=== PATIENT | male | born 1955 | race Caucasian/White ===

== ENCOUNTER 2016-09-23 06:15 | Day surgery (SDC) | payer OTHER ==
[~2016-09-23] VITALS: Ht 167.6 cm; Wt 78.6 kg
[~2016-09-23 06:15] MED LIST: NOMED
[2016-09-23] MEDS ORDERED: fentaNYL-PF 50 mCg/mL 2 mL Inj ONE (06:16)
[2016-09-23] MEDS ORDERED: Propofol 10,000 mCg/mL 20 mL Inj ONE (06:16)
[2016-09-23 06:32] VITALS: BP 110/73; PULSE 57; RESP 12; O2SAT 96
[2016-09-23] MEDS: Lactated Ringer's 1,000 ML IV SCH ×2 (06:56→08:04)
[2016-09-23] MEDS ORDERED: HYDROcodone-APAP 5-325 mg Tablet PO PRN (07:55)
[2016-09-23] MEDS ORDERED: Lidocaine 1%-Epi 1:100,000 20 mL Inj INFILTRATE ONE (08:14)
[2016-09-23 08:38] VITALS: BP 105/62; PULSE 55; RESP 16; O2SAT 98
[2016-09-23] MEDS ORDERED: hydrALAZINE 20 mg/mL Inj IVPUSH PRN (08:45)
[2016-09-23] MEDS ORDERED: Atropine 0.4 mg/mL Inj IVPUSH PRN (08:45)
[2016-09-23] MEDS ORDERED: fentaNYL-PF 50 mCg/mL 2 mL Inj IVPUSH PRN (08:45)
[2016-09-23] MEDS ORDERED: Labetalol 5 mg/mL 4 mL Inj IV PRN (08:45)
[2016-09-23] MEDS ORDERED: Phenylephrine 10,000 mCg/mL Inj IVPUSH PRN (08:45)
[2016-09-23] MEDS ORDERED: EPHEDrine Sulfate 50 mg/mL Inj IVPUSH PRN (08:45)
[2016-09-23] MEDS ORDERED: Ondansetron 2 mg/mL 2 mL Inj IVPUSH PRN (08:45)
[2016-09-23] MEDS ORDERED: Lactated Ringer's 1,000 ML IV SCH (08:45)
[2016-09-23] MEDS ORDERED: Lactated Ringer's 500 ML IV PRN (08:45)
[2016-09-23 08:57] VITALS: BP 124/80; PULSE 61; RESP 18; O2SAT 96
--- NOTE | 2016-09-23 13:10 | PCM.HPANE ---
Patient Data Surgeon Admitting Provider: Attending Provider:Ray Bustamante DO Primary Care Physician:Tereza Holland MD Other Provider:Gabrielle Johnson Anesthesia Reason for Visit Right Carpal Tunnel Syndrome Ht/WT & BMI Height (Feet): 5 Height (Inches): 6.00 Weight (Kilograms): 78.600 Body Mass Index 27.00 Allergies Coded Allergies: lidocaine (Verified Adverse Reaction, Intermediate, CAUSED TWITCHING WHEN GIVEN IV DURING RANDALL BLOCK, 09/23/16) Past Anesthesia History Anesthesia History: Denies:: Anesthesia Reactions Diabetes History Hx Diabetes?: No Medications Reported Medications No Historical Medication Ea Ref 0 01/13/09 History History of ENT Problems?: No Hx of Heart Problems?: No Hx of Respiratory Problem?: No Respiratory History: Denies:: Oxygen Administration Use of C-PAP Machine Hx Neurologic Problems?: No Hx of GI Problems?: No Hx of Problems?: Yes Genitourinary History: Positive for:: Kidney Stones (prior hx of ESWL, lithotripsy) Male Hx: Positive for:: Testicular Surgery (hx vasectomy) Denies:: Prostate Problems Skin History: Denies:: History Skin Disorders? Hx Musculoskeletal Problems?: Yes Musculoskeletal History: Positive for:: Musculoskeletal Trauma (right carpal tunnel current admission problem) Hx of Psycho/Social Problems?: No Hx Surgeries?: Yes (tonsil, vas, ESWL) Hx Any Other Health Problems?: Yes Other History: Denies:: Cancer Thyroid Disease Hx Diabetes: No Have You Smoked inLast 12 mo: No Stop/Bang P-Blood Pressure: treated: No B- Body Mass Index > 35 kg/m2: No A- Age over 50: Yes N- Neck Large Circumference: No G- Gender Male: Yes Risk Assessment Category Category 1A: Patient has history of documented sleep apnea, and HAS NOT received any narcotic, sedative or anesthesia administration during this stay. Category 1B: Patient has history of documented sleep apnea, and HAS received any narcotic , sedative or anesthesia administration during this stay Category 2: Patient has SUSPECTED Obstructive Sleep Apnea, and HAS received any narcotic , sedative or anesthesia administration during this stay. Category 3: Patient has SUSPECTED Obstructive Sleep Apnea and HAS NOT received narcotic, sedative or anesthesia administration during this stay. Category 4: Outpatient in Procedural Areas with known sleep apnea or who screen positive for High Risk via the STOP/BANG questionnaire. Exam Exam Vital Signs Vital Signs Date Time Temp Pulse Resp B/P Pulse Ox O2 Delivery O2 Flow Rate FiO2 09/23/16 06:32 36.5 57 12 110/73 96 Room Air General Appearance: Alert, Oriented X3, Cooperative, No Acute Distress HEENT/AIRWAY: MP 2, Neck Movement (FROM), Mouth Opening (3 FBMO) Lungs: Normal Air Movement Heart: Regular Rate/Rhythm Meds/Labs/Diagnostics Admission Meds Current Medications Lactated Ringer's (Lr) 1,000 ml @ 120 mls/hr Q8H20M IV Last administered on t 06:56; Start 09/23/16 at 05:00; Stop 09/23/16 at 13:19 Plan Impression Patient chart reviewed, patient interviewed and anesthestic plan with risks, benefits, and alternatives discussed, and informed consent obtained. NPO Status: > 8hrs ASA Physical Status: ASA2 Mod Systemic Disease Anesthetic Plan: Other (Randall block) Bene/Risks/Altern/Consents: Yes HP Complete Prior to Induction: Yes Jeremiah Thomas MD Sep 23, 2016 07:01
--- NOTE | 2016-09-23 13:12 | PCM.ANEP1 ---
Post Anesthesia Phase 1 PACU Phase 1 Assessment Vital Signs Vital Signs Date Time Temp Pulse Resp B/P Pulse Ox O2 Delivery O2 Flow Rate FiO2 09/23/16 08:57 61 18 124/80 96 Room Air 09/23/16 08:38 36.4 55 16 105/62 98 Room Air 09/23/16 06:32 36.5 57 12 110/73 96 Room Air Anesthetic Administered: Other (Kinney block) MANZANO's with Equal Strength: Yes Pain: No Nausea or Vomiting: No Oxygen Delivery: Room Air Lungs: Normal Air Movement Dermatome Level: Full Sensation Summary Some initial muscle twitching after twan block released. No other symptoms of local anesthetic toxicity. VSS. Clear mental status. No bradycardia or cardia arrhythmias. No double vision or numb lips. Twitching resolved after a while and the patient was discharged with no issues. Jeremiah Thomas MD Sep 23, 2016 13:12
--- NOTE | 2016-09-23 13:12 | PCM.ANEP2 ---
Post Anesthesia Evaluation ASA/CMS Post Anesthesia VS in Patient's Normal Range?: Yes Resp Stable; Airway Patent?: Yes CV Function & Hydration Stable: Yes Mental Status Recovered?: Yes Pain control Satisfactory?: Yes N/V Control Satisfactory?: Yes Additional Comments Twitching resolved. Jeremiah Thomas MD Sep 23, 2016 13:12
--- NOTE | 2016-09-23 20:40 | OP ---
[address] [address] OPERATIVE REPORT PATIENT: KENJI BELTRAN : 1955 MR#: [id number] ADMIT: 09/23/2016 JOB ID: [id number] DATE OF SURGERY: 09/23/2016 PREOPERATIVE DIAGNOSIS(ES): Right carpal tunnel syndrome. POSTOPERATIVE DIAGNOSIS(ES): Right carpal tunnel syndrome. PROCEDURE: Right open carpal tunnel release. SURGEON: Ray Bustamante DO ANESTHESIA: Anh block. HISTORY OF PRESENT ILLNESS: The patient is a pleasant 60-year-old male with a longstanding history of right hand pain and paresthesias who was treated conservatively for carpal tunnel syndrome with nighttime bracing. He had electrodiagnostic findings confirming carpal tunnel syndrome. With the failure of the bracing and conservative treatment, he opted to proceed with operative intervention. He understood the risks include, but are not limited to, neurovascular injury, tendon injury, infection, failure to resolve the patient of his preoperative symptoms, stiffness, and persistent pain, all of which may require further intervention. The patient had all questions answered. Consent was signed and placed in the chart. PROCEDURE IN DETAIL: The patient was brought to the operative suite and placed supine on the operating table. Surgical time-out was performed. Everyone in the room was in agreement. After appropriate anesthesia was obtained, the right upper extremity was prepped and draped in sterile fashion. A 2 cm longitudinal incision was made in line with the radial aspect of the ring finger and the ulnar aspect of the palmaris longus. The incision was kept distal to the wrist crease and proximal to Villa's cardinal line. Subcutaneous tissues were dissected with the bipolar electrocautery, which was utilized to maintain hemostasis throughout the procedure. The palmar fascia was first identified and incised longitudinally in line with the skin incision, followed by exposure of underlying transverse carpal ligament. The transverse carpal ligament was then released in its entirety to include the distal extent of the antebrachial fascia. Copious irrigation was performed, followed by closure of the skin with 5-0 nylon in simple interrupted fashion. The patient was then placed in a bulky soft dressing. ESTIMATED BLOOD LOSS: 1 mL. COMPLICATIONS: None. DISPOSITION: The patient tolerated the procedure well. Anesthesia was reversed. The patient was transferred back to recovery. POSTOPERATIVE PLAN: The patient follow up in the office in two weeks. We will remove the patient's sutures at that time and have him start working on range of motion and scar mobilization.
== END 2016-09-23 23:59 | disposition home or self-care (01) ==
LOC: SAS 06:15
PROVIDERS: ATTEND Orthopaedic Surgery
DX: G56.01 Carpal tunnel syndrome, right upper limb (principal)
CPT/HCPCS: 64721; J2250; J7120

== ENCOUNTER 2016-12-09 05:45 | Day surgery (SDC) | payer OTHER ==
[~2016-12-09] VITALS: Ht 167.6 cm; Wt 80.6 kg
[2016-12-09] VITALS (9 sets, daily range): BP systolic 112–131; BP diastolic 72–92; PULSE 50–54; RESP 6–16; O2SAT 93–99
[2016-12-09] MEDS ORDERED: Dexamethasone 4 mg/mL Inj ONE (05:46)
[2016-12-09] MEDS ORDERED: Propofol 10,000 mCg/mL 20 mL Inj ONE (05:46)
[2016-12-09] MEDS ORDERED: Lidocaine PF 1% 30 mL Inj ONE (05:46)
[2016-12-09] MEDS ORDERED: Ondansetron 2 mg/mL 2 mL Inj ONE (05:46)
[2016-12-09] MEDS ORDERED: fentaNYL-PF 50 mCg/mL 2 mL Inj ONE (05:46)
[2016-12-09] MEDS: Lactated Ringer's 1,000 ML IV SCH ×2 (05:55→07:25)
--- NOTE | 2016-12-09 07:21 | PCM.HPANE ---
Patient Data Date of Service: Dec 09, 2016 Surgeon Admitting Provider: Attending Provider:Ray Bustamante DO Primary Care Physician:Tereza Holland MD Other Provider:Gabrielle Johnson Anesthesia Reason for Visit Left Carpal Tunnel Syndrome Ht/WT & BMI Height (Feet): 5 Height (Inches): 6 Weight (Kilograms): 80.6 Body Mass Index 28.00 Allergies Coded Allergies: lidocaine (Verified Adverse Reaction, Intermediate, CAUSED TWITCHING WHEN GIVEN IV DURING RANDALL BLOCK, 09/23/16) Past Anesthesia History Anesthesia History: Positive for:: Anesthesia Reactions (lidocaine prior randall block 09/2016 caused "twitching") Diabetes History Hx Diabetes?: No MRSA MRSA: No Medications Hypertension Medication: No Home Meds Incl Beta Samantha: No Reported Medications No Historical Medication Ea Ref 0 01/13/09 History History of ENT Problems?: No HEENT History: Denies:: Hearing Problem Hx of Heart Problems?: No Cardiovascular History: Denies:: Hypertension Hx of Respiratory Problem?: No Respiratory History: Denies:: Asthma COPD Emphysema Oxygen Administration Pneumonia Tuberculosis Use of C-PAP Machine Hx Neurologic Problems?: No Neurological History: Denies:: CVA Headaches Multiple Sclerosis Parkinson's Disease Seizures TIA Hx of GI Problems?: No Gastrointestinal History: Denies:: Cirrhosis Gastroesphageal Reflux Gastrointestinal Bleeding Hiatal Hernia Liver Disease Hx of Problems?: Yes Genitourinary History: Positive for:: Kidney Stones (prior hx of ESWL, lithotripsy) Male Hx: Positive for:: Testicular Surgery (hx vasectomy) Denies:: Prostate Problems Skin History: Denies:: History Skin Disorders? Hx Musculoskeletal Problems?: Yes Musculoskeletal History: Positive for:: Musculoskeletal Trauma (left carpal tunnel current admission problem) Hx of Psycho/Social Problems?: No Hx Surgeries?: Yes (tonsil, vas, ESWL, right open CTR) Hx Any Other Health Problems?: Yes Other History: Denies:: Cancer Thyroid Disease Hx Diabetes: No Hx Alcohol Use: NoHx Substance Use: No Smoking Status: Never Smoker Have You Smoked inLast 12 mo: No Stop/Bang S-Snoring: Do You Snore Loudly: No T-Tired: feel tired, fatigued: No O-Obsered: Observed not breath: No P-Blood Pressure: treated: No B- Body Mass Index > 35 kg/m2: No A- Age over 50: Yes N- Neck Large Circumference: No G- Gender Male: Yes KEYON Total Score: 2 KEYON Risk Assessment: Low Risk, <3 Yes Risk Assessment Category Category 1A: Patient has history of documented sleep apnea, and HAS NOT received any narcotic, sedative or anesthesia administration during this stay. Category 1B: Patient has history of documented sleep apnea, and HAS received any narcotic , sedative or anesthesia administration during this stay Category 2: Patient has SUSPECTED Obstructive Sleep Apnea, and HAS received any narcotic , sedative or anesthesia administration during this stay. Category 3: Patient has SUSPECTED Obstructive Sleep Apnea and HAS NOT received narcotic, sedative or anesthesia administration during this stay. Category 4: Outpatient in Procedural Areas with known sleep apnea or who screen positive for High Risk via the STOP/BANG questionnaire. Exam Exam Vital Signs Vital Signs Date Time Temp Pulse Resp B/P Pulse Ox O2 Delivery O2 Flow Rate FiO2 12/09/16 05:59 36 54 16 119/76 95 Room Air General Appearance: Alert, Oriented X3, Cooperative, No Acute Distress HEENT/AIRWAY: MP 2 Lungs: Clear to Auscultation, Normal Air Movement Heart: Exam Unremarkable, Regular Rate/Rhythm, No Murmurs/Rubs/Gallops Meds/Labs/Diagnostics Admission Meds Current Medications Lactated Ringer's (Lr) 1,000 ml @ 120 mls/hr Q8H20M IV Last administered on t 05:55; Start 12/09/16 at 05:00; Stop 12/09/16 at 13:19 Plan Impression Patient chart reviewed, patient interviewed and anesthestic plan with risks, benefits, and alternatives discussed, and informed consent obtained. NPO Status: 12/08/16 ASA Physical Status: ASA2 Mod Systemic Disease Anesthetic Plan: GA Bene/Risks/Altern/Consents: Yes HP Complete Prior to Induction: Yes Keny Coker MD Dec 09, 2016 07:21
[2016-12-09] MEDS ORDERED: HYDROcodone-APAP 5-325 mg Tablet PO PRN (07:25)
[2016-12-09] MEDS ORDERED: Bupivacaine-MPF 0.25% 30 mL Inj INFILTRATE ONE (07:37)
[2016-12-09] MEDS ORDERED: Lactated Ringer's 1,000 ML IV SCH (07:39)
[2016-12-09] MEDS ORDERED: Lactated Ringer's 500 ML IV PRN (07:39)
[2016-12-09] MEDS ORDERED: MetoCLOpramide 5 mg/mL 2 mL Inj IVPUSH PRN (07:40)
[2016-12-09] MEDS ORDERED: fentaNYL-PF 50 mCg/mL 2 mL Inj IVPUSH PRN (07:40)
[2016-12-09] MEDS ORDERED: Ondansetron 2 mg/mL 2 mL Inj IVPUSH PRN (07:40)
[2016-12-09] MEDS ORDERED: Labetalol 5 mg/mL 4 mL Inj IV PRN (07:40)
[2016-12-09] MEDS ORDERED: HYDROmorphone 1 mg/mL Inj IVPUSH PRN (07:40)
[2016-12-09] MEDS ORDERED: hydrALAZINE 20 mg/mL Inj IVPUSH PRN (07:40)
[2016-12-09] MEDS ORDERED: Phenylephrine 10,000 mCg/mL Inj IVPUSH PRN (07:40)
[2016-12-09] MEDS ORDERED: Atropine 0.4 mg/mL Inj IVPUSH PRN (07:40)
[2016-12-09] MEDS ORDERED: Dexamethasone 4 mg/mL Inj IVPUSH PRN (07:40)
[2016-12-09] MEDS ORDERED: EPHEDrine Sulfate 50 mg/mL Inj IVPUSH PRN (07:40)
--- NOTE | 2016-12-09 07:56 | PCM.ANEP1 ---
Post Anesthesia Phase 1 PACU Phase 1 Assessment Date of Service: Dec 09, 2016 Vital Signs 36 113/92 55 10 98% FM Anesthetic Administered: GA Level of Alertness: Sleeping, hard to arouse MANZANO's with Equal Strength: Yes Pain: No Nausea or Vomiting: No Airway Device: chin lift Oxygen Delivery: Simple Mask Lungs: Clear to Auscultation, Normal Air Movement Keny Coker MD Dec 09, 2016 07:56
--- NOTE | 2016-12-09 09:01 | PCM.ANEP2 ---
Post Anesthesia Evaluation ASA/CMS Post Anesthesia Date of Service: Dec 09, 2016 VS in Patient's Normal Range?: Yes Resp Stable; Airway Patent?: Yes CV Function & Hydration Stable: Yes Mental Status Recovered?: Yes Pain control Satisfactory?: Yes N/V Control Satisfactory?: Yes Keny Coker MD Dec 09, 2016 09:01
--- NOTE | 2016-12-10 18:46 | OP ---
[address] [address] OPERATIVE REPORT PATIENT: KENJI BELTRAN : 1955 MR#: [id number] ADMIT: 12/09/2016 JOB ID: [id number] DATE OF SURGERY: 12/09/2016 PREOPERATIVE DIAGNOSIS(ES): Left carpal tunnel syndrome. POSTOPERATIVE DIAGNOSIS(ES): Left carpal tunnel syndrome. PROCEDURE: Left open carpal tunnel release. SURGEON: Ray Bustamante DO. ANESTHESIA: General. BRIEF HISTORY: The patient is a pleasant, 61-year-old male that presented with bilateral hand pain and paresthesias. He underwent a right open carpal tunnel release after failure of conservative treatment and did well postoperatively. He continued to have symptoms to his left despite conservative treatment and opted to proceed with the same surgery. He is aware of the risks, benefits, alternatives, indications. He has had the same procedure performed on the contralateral side. PROCEDURE IN DETAIL: The patient was brought to the operative suite and placed supine on the operating table. Surgical time-out was then performed. Everyone in the room was in agreement. After appropriate anesthesia was obtained, a left upper arm tourniquet was applied, and the left upper extremity was prepped and draped in sterile fashion. Left upper extremity was then exsanguinated and tourniquet inflated to 250 mmHg. A 2 cm longitudinal incision was made in line with the radial aspect of the ring finger and the ulnar aspect of the palmaris longus. The incision was kept distal to the wrist crease and proximal to Villa cardinal line. Subcutaneous tissues were dissected with bipolar electrocautery utilized to maintain hemostasis throughout the procedure. The palmar fascia was first identified and incised longitudinally in line with the skin incision followed by exposure of the underlying transverse carpal ligament. Transverse carpal ligament was then released in its entirety to include the distal extent of the antebrachial fascia. Copious irrigation was then performed followed by closure of the skin with 5-0 nylon in simple interrupted fashion. The patient was then placed in a bulky soft dressing. ESTIMATED BLOOD LOSS: Less than 1 cc. COMPLICATIONS: None. DISPOSITION: The patient tolerated the procedure well. Anesthesia was reversed. The patient was transferred to PACU for recovery. POSTOPERATIVE PLAN: The patient will follow up in my office in two weeks. I will remove the patient's sutures at that time and have him start working on range of motion and start mobilization.
== END 2016-12-09 23:59 | disposition home or self-care (01) ==
LOC: SAS 05:45
PROVIDERS: ATTEND Orthopaedic Surgery
DX: G56.02 Carpal tunnel syndrome, left upper limb (principal)
CPT/HCPCS: 64721; J1100; J2250; J2405; J3010; J7120